=== PATIENT | female | born 1950 | race Caucasian/White ===

== ENCOUNTER 2021-04-20 10:45 | Outpatient (CLI) | payer OTHER | END 2021-04-20 10:59 | disposition home or self-care (01) | LOC: NUCLEAR 10:45 | PROVIDERS: ATTEND Orthopaedic Surgery | DX: I87.2 Venous insufficiency (chronic) (peripheral) (principal); M81.0 Age-related osteoporosis without current pathological fracture ==

== ENCOUNTER 2021-05-19 09:23 | Outpatient (CLI) | payer OTHER | END 2021-05-19 09:30 | disposition home or self-care (01) | LOC: NUCLEAR 09:23 | PROVIDERS: ATTEND Internal Medicine Cardiovascular Disease | DX: I73.9 Peripheral vascular disease, unspecified (principal); I82.493 Acute embolism and thrombosis of other specified deep vein of lower extremity, bilateral ==

== ENCOUNTER → 2021-05-19 10:08 | Outpatient (CLI) | payer OTHER | END | disposition home or self-care (01) | LOC: LAB 10:08 | PROVIDERS: ATTEND Orthopaedic Surgery | DX: E83.42 Hypomagnesemia (principal); M85.9 Disorder of bone density and structure, unspecified; E56.1 Deficiency of vitamin K; E78.00 Pure hypercholesterolemia, unspecified ==

== ENCOUNTER 2021-06-09 08:12 | Outpatient (CLI) | payer OTHER | END 2021-06-09 08:13 | disposition home or self-care (01) | LOC: NUCLEAR 08:12 | PROVIDERS: ATTEND Internal Medicine Cardiovascular Disease | DX: I50.1 Left ventricular failure, unspecified (principal); I25.9 Chronic ischemic heart disease, unspecified | CPT/HCPCS: 78452; 93017; A9500 ==

== ENCOUNTER 2022-03-10 14:44 | Outpatient (CLI) | payer OTHER | END 2022-03-10 14:58 | disposition home or self-care (01) | LOC: LAB 14:44 | PROVIDERS: ATTEND Internal Medicine Hematology & Oncology | DX: I10 Essential (primary) hypertension (principal) ==

== ENCOUNTER → 2022-03-25 | Outpatient (CLI) | payer OTHER | END | disposition home or self-care (01) | LOC: MRI 10:20 | PROVIDERS: ATTEND Internal Medicine Hematology & Oncology | DX: C83.00 Small cell B-cell lymphoma, unspecified site (principal) | CPT/HCPCS: 72195; 74181 ==

== ENCOUNTER → 2022-08-25 | Outpatient (CLI) | payer OTHER | END | disposition home or self-care (01) | LOC: NUCLEAR 09:00 | PROVIDERS: ATTEND Thoracic Surgery (Cardiothoracic Vascular Surgery) | DX: I87.2 Venous insufficiency (chronic) (peripheral) (principal); I73.9 Peripheral vascular disease, unspecified ==

== ENCOUNTER 2022-08-26 09:16 | Outpatient (CLI) | payer OTHER | END 2022-08-26 09:17 | disposition home or self-care (01) | LOC: NUCLEAR 09:16 | PROVIDERS: ATTEND Thoracic Surgery (Cardiothoracic Vascular Surgery) | DX: I73.9 Peripheral vascular disease, unspecified (principal) ==

== ENCOUNTER 2022-09-10 14:15 | Outpatient (CLI) | payer OTHER | END 2022-09-10 14:16 | disposition home or self-care (01) | LOC: LAB 14:15 | PROVIDERS: ATTEND Internal Medicine Hematology & Oncology | DX: R19.5 Other fecal abnormalities (principal) ==

== ENCOUNTER → 2022-10-11 11:56 | Outpatient (CLI) | payer OTHER | END | disposition home or self-care (01) | LOC: LAB 11:56 | PROVIDERS: ATTEND Internal Medicine Hematology & Oncology | DX: D50.8 Other iron deficiency anemias (principal); I10 Essential (primary) hypertension; E03.8 Other specified hypothyroidism; E11.9 Type 2 diabetes mellitus without complications; Z85.72 Personal history of non-Hodgkin lymphomas; I77.6 Arteritis, unspecified ==

== ENCOUNTER 2022-12-31 11:31 | Outpatient (CLI) | payer OTHER | END 2022-12-31 11:36 | disposition home or self-care (01) | LOC: LAB 11:31 | PROVIDERS: ATTEND Internal Medicine Hematology & Oncology | DX: E11.9 Type 2 diabetes mellitus without complications (principal); Z12.11 Encounter for screening for malignant neoplasm of colon; K76.0 Fatty (change of) liver, not elsewhere classified ==

== ENCOUNTER 2023-01-01 10:56 | Outpatient (CLI) | payer OTHER | END 2023-01-01 11:19 | disposition home or self-care (01) | LOC: LAB 10:56 | DX: E11.9 Type 2 diabetes mellitus without complications (principal); Z12.11 Encounter for screening for malignant neoplasm of colon ==

== ENCOUNTER 2023-01-06 07:50 | Outpatient (CLI) | payer OTHER | END 2023-01-06 07:52 | disposition home or self-care (01) | LOC: SONOGRAMA 07:50 | PROVIDERS: ATTEND Internal Medicine Hematology & Oncology | DX: K76.0 Fatty (change of) liver, not elsewhere classified (principal) ==

== ENCOUNTER 2023-01-11 14:54 | Outpatient (CLI) | payer OTHER | END 2023-01-11 14:56 | disposition home or self-care (01) | LOC: LAB 14:54 | PROVIDERS: ATTEND Internal Medicine Hematology & Oncology | DX: U07.1 COVID-19 (principal); Z20.828 Contact with and (suspected) exposure to other viral communicable diseases; J20.0 Acute bronchitis due to Mycoplasma pneumoniae; J11.1 Influenza due to unidentified influenza virus with other respiratory manifestations; Z84.0 Family history of diseases of the skin and subcutaneous tissue ==

== ENCOUNTER 2023-05-10 12:47 | Outpatient (CLI) | payer OTHER | END 2023-05-10 12:54 | disposition home or self-care (01) | LOC: SONOGRAMA 12:47 | DX: D17.79 Benign lipomatous neoplasm of other sites (principal) ==

== ENCOUNTER 2023-05-26 09:55 | Outpatient (CLI) | payer OTHER | END 2023-05-26 09:56 | disposition home or self-care (01) | LOC: NUCLEAR 09:55 | PROVIDERS: ATTEND Orthopaedic Surgery | DX: M81.0 Age-related osteoporosis without current pathological fracture (principal) ==

== ENCOUNTER 2023-06-02 14:22 | Outpatient (CLI) | payer OTHER | END 2023-06-02 14:34 | disposition home or self-care (01) | LOC: MRI 14:22 | PROVIDERS: ATTEND Orthopaedic Surgery | DX: M54.59 Other low back pain (principal) | CPT/HCPCS: 72148 ==

== ENCOUNTER 2023-07-27 11:41 | Outpatient (CLI) | payer OTHER ==
[2023-07-27 13:22] LABS: CHOL HDL RATIO 2.7 (0-5.0)
== END 2023-07-27 11:42 | disposition home or self-care (01) ==
LOC: LAB 11:41
PROVIDERS: ATTEND Internal Medicine Hematology & Oncology
DX: E78.00 Pure hypercholesterolemia, unspecified (principal)

== ENCOUNTER 2023-08-25 09:04 | Outpatient (CLI) | payer OTHER ==
[2023-08-25 10:04] LABS: HEMATOCRIT 29.9 % (36.0-45.00); MEAN CORPUSCULAR HEMOGLOBIN 24.4 pg (27.00-32.0); MEAN CORPUSCULAR HGB CONC 33.5 g/dl (32.0-36.0); PLATELET COUNT 319 K/uL (150-450); RED BLOOD COUNT 4.09 M/uL (4.00-6.00)
[2023-08-25 11:10] LABS: BILIRUBIN TOTAL 0.47 mg/dL (0.3-1.2); CALCIUM 9.4 mg/dL (8.5-10.1); CREATININE SERUM 0.72 mg/dL (0.55-1.02); FREE TRIODOTIRONINE 2.2 pg/ml (2.18-3.98); GFR 78.96; GLOBULINA 3.2 G/DL (2.4-3.5); MAGNESIUM 2.1 mg/dL (1.8-2.4); POTASSIUM 3.95 mEq/L (3.5-5.1); T4 FREE 1.09 NG/ML (0.76-1.46); TOTAL PROTEIN 7.2 gm/dL (6.4-8.2); TSH 3.69 uIU/mL (0.358-3.74)
[2023-08-25 11:11] LABS: VITAMIN D3 25 HYDROXY 29.96 ng/ml (30-120)
[2023-08-25 12:53] LABS: RED CELL DISTRIBUTION WIDTH 16.5 % (11.5-14.5)
== END 2023-08-25 09:05 | disposition home or self-care (01) ==
LOC: LAB 09:04
PROVIDERS: ATTEND Internal Medicine Hematology & Oncology
DX: D50.8 Other iron deficiency anemias (principal); D51.3 Other dietary vitamin B12 deficiency anemia; I10 Essential (primary) hypertension; E03.8 Other specified hypothyroidism; E11.9 Type 2 diabetes mellitus without complications

== ENCOUNTER → 2023-08-25 | Outpatient (CLI) | payer OTHER | END | disposition home or self-care (01) | LOC: RAD 09:35 | PROVIDERS: ATTEND Orthopaedic Surgery | DX: M25.551 Pain in right hip (principal); M25.561 Pain in right knee ==

== ENCOUNTER 2024-02-04 11:11 | Emergency (ER) | payer OTHER ==
[~2024-02-04] VITALS: Ht 162.6 cm; Wt 82.6 kg
[2024-02-04] MEDS ORDERED: MACRODANTIN100 MG PO (11:29)
[2024-02-04] MEDS ORDERED: AMLODIPINE-VAL1 EAC1 PO (11:30)
[2024-02-04] MEDS ORDERED: SYNTHROID112 MCG PO (11:30)
[2024-02-04] MEDS ORDERED: CEFADROXIL500 MG PO (11:30)
[2024-02-04] MEDS ORDERED: AMLODIPINE BESYL5 MG PO (11:30)
[2024-02-04] MEDS ORDERED: JANUMET XR 50-1 EACH PO (11:31)
[2024-02-04] MEDS ORDERED: CLOPIDOGREL BIS75 MG PO (11:31)
[2024-02-04] MEDS ORDERED: VALSARTAN160 MG PO (11:31)
[2024-02-04] MEDS ORDERED: HYDRODIURIL12.5 MG PO (11:31)
[2024-02-04 12:11] LABS: HEMATOCRIT 34.6 % (36.0-45.00); HEMOGLOBIN 12.1 g/dL (12.0-15.00); MEAN CELL VOLUME 81.5 fL (80.00-100.00); MEAN CORPUSCULAR HEMOGLOBIN 28.4 pg (27.00-32.0); MEAN CORPUSCULAR HGB CONC 34.8 g/dl (32.0-36.0); PLATELET COUNT 310 K/uL (150-450); RED BLOOD COUNT 4.25 M/uL (4.00-6.00); RED CELL DISTRIBUTION WIDTH 15.3 % (11.5-14.5)
[2024-02-04 12:33] LABS: ERYTHROCYTE SEDIMENTATION RATE 32 mm/hr
[2024-02-04 12:50] LABS: ALBUMIN 3.7 gm/dL (3.4-5.0); BILIRUBIN TOTAL 0.6 mg/dL (0.3-1.2); CALCIUM 9.2 mg/dL (8.5-10.1); CREATININE SERUM 0.78 mg/dL (0.55-1.02); GLOBULINA 3.4 G/DL (2.4-3.5); POTASSIUM 4.34 mEq/L (3.5-5.1); TOTAL PROTEIN 7.1 gm/dL (6.4-8.2)
[2024-02-04 12:53] LABS: D DIMER 0.49 MG/L; PARTIAL THROMBOPLASTIN TIME 25.4 SECONDS (22.0-34.0)
[2024-02-04 15:10] LABS: INR 0.97; PROTHROMBIN TIME 10.2 SECONDS (9.0-11.5)
== END 2024-02-04 18:20 | disposition home or self-care (01) ==
LOC: ER 11:11
PROVIDERS: General Practice
DX: M79.651 Pain in right thigh (principal); Z91.041 Radiographic dye allergy status; Z88.8 Allergy status to other drugs, medicaments and biological substances; E11.9 Type 2 diabetes mellitus without complications; Z79.84 Long term (current) use of oral hypoglycemic drugs; M71.21 Synovial cyst of popliteal space [Baker], right knee

== ENCOUNTER 2024-02-06 12:34 | Outpatient (CLI) | payer OTHER ==
[~2024-02-06 12:34] MED LIST: AMLODIPINE BESYL5 MG PO; AMLODIPINE-VAL1 EAC1 PO; CEFADROXIL500 MG PO; CLOPIDOGREL BIS75 MG PO; HYDRODIURIL12.5 MG PO; JANUMET XR 50-1 EACH PO; MACRODANTIN100 MG PO; SYNTHROID112 MCG PO; VALSARTAN160 MG PO
== END 2024-02-06 12:37 | disposition home or self-care (01) ==
LOC: LAB 12:34
PROVIDERS: ATTEND Internal Medicine
DX: B37.9 Candidiasis, unspecified (principal)

== ENCOUNTER 2024-03-23 12:29 | Outpatient (CLI) | payer OTHER | END 2024-03-23 12:37 | disposition home or self-care (01) | LOC: RAD 12:29 | PROVIDERS: ATTEND Internal Medicine Hematology & Oncology | DX: M54.2 Cervicalgia (principal) ==

== ENCOUNTER 2024-06-14 07:58 | Inpatient (IN) | payer OTHER ==
[~2024-06-14] VITALS: Ht 165.1 cm; Wt 79.4 kg
[2024-06-14] MEDS ORDERED: ZETIA10 MG (08:17)
[2024-06-14] MEDS ORDERED: PLAVIX75 MG (08:17)
[2024-06-14] MEDS ORDERED: MECLIZINE HCL 12.5 MG TABLET PO ONE (09:15)
[2024-06-14 10:33] LABS: HEMOGLOBIN 12.4 g/dL (12.0-15.00); MEAN CELL VOLUME 81.8 fL (80.00-100.00); MEAN CORPUSCULAR HEMOGLOBIN 29.1 pg (27.00-32.0); MEAN CORPUSCULAR HGB CONC 35.6 g/dl (32.0-36.0); PLATELET COUNT 240 K/uL (150-450); RED BLOOD COUNT 4.28 M/uL (4.00-6.00); RED CELL DISTRIBUTION WIDTH 13.5 % (11.5-14.5)
[2024-06-14 11:25] LABS: ALBUMIN 3.9 gm/dL (3.4-5.0); BILIRUBIN TOTAL 0.59 mg/dL (0.3-1.2); CALCIUM 8.7 mg/dL (8.5-10.1); CREATININE SERUM 0.71 mg/dL (0.55-1.02); GFR 80.04; GLOBULINA 3.1 G/DL (2.4-3.5); POTASSIUM 3.59 mEq/L (3.5-5.1)
[2024-06-14] MEDS ORDERED: 0.9 % SODIUM CHLORIDE 1,000 ML IV ONE (12:00)
[2024-06-14 14:57] LABS: CALCIUM 9.5 mg/dL (8.5-10.1); CREATININE SERUM 0.61 mg/dL (0.55-1.02); GFR 95.36; POTASSIUM 3.49 mEq/L (3.5-5.1)
[2024-06-14] MEDS ORDERED: 0.9 % SODIUM CHLORIDE 1,000 ML IV SCH ×2 (15:30→18:30)
[2024-06-14] MEDS ORDERED: INSULIN LISPRO 1,000 UNIT/10 ML UNITS SUBCUTANEO PRN (18:30)
[2024-06-14] MEDS ORDERED: DEXTROSE 50 % IN WATER 0.5 G/ML DISP.SYRIN IV PRN (18:30)
[2024-06-14] MEDS ORDERED: ACETAMINOPHEN 500 MG GEL..CAP PO PRN (18:30)
[2024-06-14 20:25] VITALS: BP 119/64; O2SAT 98
[2024-06-14 23:48] VITALS: BP 133/68; O2SAT 99
[2024-06-15 03:30] VITALS: BP 139/83; O2SAT 98
[2024-06-15] MEDS ORDERED: LEVOTHYROXINE SODIUM 112 MCG TABLET PO SCH (06:00)
[2024-06-15 07:06] LABS: INR 0.97; PARTIAL THROMBOPLASTIN TIME 27.1 SECONDS (22.0-34.0); PROTHROMBIN TIME 10.6 SECONDS (9.0-11.5)
[2024-06-15 07:39] LABS: CALCIUM 8.6 mg/dL (8.5-10.1); CREATININE SERUM 0.55 mg/dL (0.55-1.02); GFR 107.46; POTASSIUM 4.17 mEq/L (3.5-5.1)
[2024-06-15 07:42] LABS: TSH 3.01 uIU/mL (0.358-3.74)
[2024-06-15 08:00] VITALS: BP 138/65; O2SAT 99
[2024-06-15] MEDS ORDERED: CLOPIDOGREL BISULFATE 75 MG TABLET PO SCH (09:00)
[2024-06-15] MEDS ORDERED: PATIENTS OWN MEDICATION (MEDICAMENTO EN PISO) PO SCH (09:00)
[2024-06-15] MEDS ORDERED: FAMOTIDINE/PF 20 MG in 0.9 % SODIUM CHLORIDE 8 ML IV PUSH SCH (09:00)
[2024-06-15] MEDS ORDERED: CLOPIDOGREL BIS75 MG PO (15:09)
[2024-06-15] MEDS ORDERED: LEVOTHYROXINE112 MCG PO (15:10)
[2024-06-15] MEDS ORDERED: AMLODIPINE-VAL1 EAC1 PO (15:12)
[2024-06-15] MEDS ORDERED: ROSUVASTATIN CA10 MG PO (15:20)
[2024-06-15 16:22] VITALS: BP 133/73; O2SAT 96
== END 2024-06-15 20:55 | disposition home or self-care (01) | DRG 641 ==
LOC: ER 08:00 → SEC-K 18:56 → SURH 18:56
PROVIDERS: General Practice; ADMIT Internal Medicine; ATTEND Internal Medicine
PROC: B020ZZZ Computerized Tomography (CT Scan) of Brain (ICD-10-PCS; principal; 2024-06-14)
DX: E87.1 Hypo-osmolality and hyponatremia (principal); I10 Essential (primary) hypertension; E03.9 Hypothyroidism, unspecified

== ENCOUNTER → 2024-07-03 11:19 | Outpatient (CLI) | payer OTHER ==
[~2024-07-03 11:19] MED LIST changes: +LEVOTHYROXINE112 MCG PO; +PLAVIX75 MG; +ROSUVASTATIN CA10 MG PO; +ZETIA10 MG
== END | disposition home or self-care (01) ==
LOC: LAB 11:19
PROVIDERS: ATTEND Internal Medicine
DX: K52.9 Noninfective gastroenteritis and colitis, unspecified (principal)

== ENCOUNTER → 2024-07-06 11:03 | Outpatient (CLI) | payer OTHER | END | disposition home or self-care (01) | LOC: NUCLEAR 11:00 | DX: I77.9 Disorder of arteries and arterioles, unspecified (principal); I65.23 Occlusion and stenosis of bilateral carotid arteries ==

== ENCOUNTER 2024-08-25 11:17 | Outpatient (CLI) | payer OTHER ==
[2024-08-25 11:56] LABS: HEMATOCRIT 35.2 % (36.0-45.00); HEMOGLOBIN 12.1 g/dL (12.0-15.00); MEAN CELL VOLUME 83.1 fL (80.00-100.00); MEAN CORPUSCULAR HEMOGLOBIN 28.7 pg (27.00-32.0); MEAN CORPUSCULAR HGB CONC 34.5 g/dl (32.0-36.0); PLATELET COUNT 255 K/uL (150-450); RED BLOOD COUNT 4.23 M/uL (4.00-6.00)
[2024-08-25 12:02] LABS: PH,URINE 6.5 (5.0-8.0); URINE APPEARANCE Clear; URINE BILIRRUBIN Negative (NEGATIVE); URINE BLOOD Negative; URINE COLOR Yellow; URINE GLUCOSE Negative (NEGATIVE); URINE KETONE Negative (NEGATIVE); URINE LEUKOCYTE Trace; URINE NITRATE Negative; URINE PROTEIN Negative (NEGATIVE); URINE UROBILINOGEN 0.2 E.U./dl
[2024-08-25 12:06] LABS: URINE BACTERIA 26.9 uL (0.0-1933); URINE EPITHELIAL CELLS 11.1 uL (0.0-38.8); URINE RBC 14.4 uL (0.0-20.8); URINE WBC 3.3 uL (0.0-23.2)
[2024-08-25 12:13] LABS: URINE CAST 0.29 uL (0.0-1.40)
[2024-08-25 12:57] LABS: ALBUMIN 3.9 gm/dL (3.4-5.0); ALKALINE PHOSPHATASE 82 U/L (50-136); ALT/SGPT 21 U/L (12-78); ANION GAP 8 (10.0-20.0); AST/SGOT 10 U/L (15-37); BILIRUBIN TOTAL 0.58 mg/dL (0.3-1.2); BLOOD UREA NITROGEN 16 mg/dL (7-18); BUN CREA RATIO 24 (7.0-25.0); CALCIUM 9.7 mg/dL (8.5-10.1); CARBON DIOXIDE 28 mEq/L (21-32); CHLORIDE 101 mmol/L (98-107); CHOL HDL RATIO 2.6 (0-5.0); CHOLESTEROL 200 mg/dL (0-200); CREATININE SERUM 0.67 mg/dL (0.55-1.02); FREE TRIODOTIRONINE 2.16 pg/ml (2.18-3.98); GFR 85.57; GLOBULINA 3.2 G/DL (2.4-3.5); GLUCOSE FASTING 121 mg/dL (65-100); HDL 78 mg/dl (40-60); LDH 198 U/L (84-246); LDL 100 mg/dl (0-130); OSMOLALITY SERUM 269 MOSM/KG (275-295); POTASSIUM 4.29 mEq/L (3.5-5.1); SODIUM 133 mmol/L (136-145); TOTAL IRON BINDING CAPACITY 402 ug/dl (250-450); TOTAL PROTEIN 7.1 gm/dL (6.4-8.2); TRIGLYCERIDES 109 mg/dL (0-150); VLDL 21 (0-39)
[2024-08-25 12:58] LABS: C-REACTIVE PROTEIN < 0.29 MG/DL (0.00-0.29)
== END 2024-08-25 11:20 | disposition home or self-care (01) ==
LOC: LAB 11:17
PROVIDERS: ATTEND Internal Medicine Hematology & Oncology
DX: D50.8 Other iron deficiency anemias (principal); I10 Essential (primary) hypertension; E03.8 Other specified hypothyroidism; E11.9 Type 2 diabetes mellitus without complications; N39.0 Urinary tract infection, site not specified; D64.9 Anemia, unspecified; R74.01 Elevation of levels of liver transaminase levels; R70.1 Abnormal plasma viscosity

== ENCOUNTER → 2024-11-09 07:50 | Outpatient (CLI) | payer OTHER ==
[~2024-11-09 07:50] MED LIST changes: +AMLODIPINE BESY10 MG PO; +BENZONATATE200 M1 PO; +CVS TUSSIN DM237 M2 PO; +LOSARTAN POTAS100 MG PO; +ROSUVASTATIN CAL5 MG PO
== END | disposition home or self-care (01) ==
LOC: NUCLEAR 07:50
PROVIDERS: ATTEND Internal Medicine
DX: I20.9 Angina pectoris, unspecified (principal)

== ENCOUNTER 2024-11-14 02:45 | Inpatient (IN) | payer OTHER ==
[~2024-11-14] VITALS: Ht 162.6 cm; Wt 179.6 kg
[~2024-11-14 02:45] MED LIST changes: -AMLODIPINE BESY10 MG PO; -BENZONATATE200 M1 PO; -CVS TUSSIN DM237 M2 PO; -LOSARTAN POTAS100 MG PO; -ROSUVASTATIN CAL5 MG PO
[2024-11-14] MEDS ORDERED: ONDANSETRON HCL 2 MG/ML VIAL IV STA (04:46)
[2024-11-14] MEDS ORDERED: FAMOTIDINE/PF 20 MG/2 ML VIAL IV PUSH STA (04:46)
[2024-11-14] MEDS ORDERED: SUCRALFATE 1 G TABLET PO STA (04:48)
[2024-11-14] MEDS ORDERED: ONDANSETRON HCL 2 MG/ML VIAL ONE ×2 (04:51→16:36)
[2024-11-14] MEDS ORDERED: FAMOTIDINE/PF 20 MG/2 ML VIAL ONE (04:52)
[2024-11-14] MEDS ORDERED: 0.9 % SODIUM CHLORIDE 1,000 ML IV ONE (05:00)
[2024-11-14 06:25] LABS: HEMOGLOBIN 11.7 g/dL (12.0-15.00); MEAN CELL VOLUME 80.5 fL (80.00-100.00); MEAN CORPUSCULAR HEMOGLOBIN 27.8 pg (27.00-32.0); MEAN CORPUSCULAR HGB CONC 34.6 g/dl (32.0-36.0); PLATELET COUNT 241 K/uL (150-450); RED BLOOD COUNT 4.22 M/uL (4.00-6.00); RED CELL DISTRIBUTION WIDTH 13.4 % (11.5-14.5)
[2024-11-14 06:52] LABS: ALBUMIN 3.7 gm/dL (3.4-5.0); BILIRUBIN TOTAL 0.69 mg/dL (0.3-1.2); CALCIUM 8.8 mg/dL (8.5-10.1); CREATININE SERUM 0.67 mg/dL (0.55-1.02); GFR 85.57; GLOBULINA 3.6 G/DL (2.4-3.5); POTASSIUM 4.05 mEq/L (3.5-5.1); TOTAL PROTEIN 7.3 gm/dL (6.4-8.2)
[2024-11-14] MEDS ORDERED: METOCLOPRAMIDE HCL 5 MG/ML VIAL ONE (10:56)
[2024-11-14] MEDS ORDERED: METOCLOPRAMIDE HCL 10 MG in DEXTROSE 5 % IN WATER 50 ML IV ONE (11:00)
[2024-11-14 11:06] LABS: CREATININE SERUM 0.71 mg/dL (0.55-1.02); GFR 80.04; POTASSIUM 3.84 mEq/L (3.5-5.1)
[2024-11-14] MEDS ORDERED: PANTOPRAZOLE SODIUM 40 MG in 0.9 % SODIUM CHLORIDE 8 ML IV PUSH STA (14:55)
[2024-11-14] MEDS ORDERED: DEXTROSE 50 % IN WATER 0.5 G/ML DISP.SYRIN IV PRN (15:15)
[2024-11-14] MEDS ORDERED: ONDANSETRON HCL 4 MG in 0.9 % SODIUM CHLORIDE 50 ML IV PRN (15:15)
[2024-11-14] MEDS ORDERED: INSULIN LISPRO 1,000 UNIT/10 ML UNITS SUBCUTANEO PRN (15:15)
[2024-11-14] MEDS ORDERED: AMLODIPINE BESYLATE 5 MG TABLET PO SCH (15:22)
[2024-11-14] MEDS ORDERED: 0.9 % SODIUM CHLORIDE 1,000 ML IV SCH (15:30)
[2024-11-14 15:50] VITALS: BP 151/79; O2SAT 99
[2024-11-14] MEDS ORDERED: INSULIN LISPRO 1,000 UNIT/10 ML UNITS SUBCUTANEO ONE (15:57)
[2024-11-14 16:08] LABS: INR 0.96; PARTIAL THROMBOPLASTIN TIME 27.3 SECONDS (22.0-34.0); PROTHROMBIN TIME 10.5 SECONDS (9.0-11.5)
[2024-11-14 16:41] LABS: COVID-19 AG NEGATIVE (NEGATIVE)
[2024-11-14 16:52] LABS: INFLUENZA A AG NEGATIVE (NEGATIVE)
[2024-11-14 22:39] VITALS: BP 160/73; O2SAT 96
[2024-11-15 01:18] VITALS: BP 169/69
[2024-11-15] MEDS ORDERED: LEVOTHYROXINE SODIUM 112 MCG TABLET PO SCH (06:00)
[2024-11-15] MEDS ORDERED: PANTOPRAZOLE SODIUM 40 MG/VIAL VIAL IV SCH (09:00)
[2024-11-15] MEDS ORDERED: CLOPIDOGREL BISULFATE 75 MG TABLET PO SCH (09:00)
[2024-11-15] MEDS ORDERED: AMLODIPINE PO SCH (09:00)
[2024-11-15] MEDS ORDERED: VALSARTAN PO SCH (09:00)
[2024-11-15] MEDS ORDERED: [UNRECOGNIZED DRUG - OTHER] PO SCH (09:00)
[2024-11-15 09:09] LABS: HEMATOCRIT 34.5 % (36.0-45.00); HEMOGLOBIN 11.9 g/dL (12.0-15.00); MEAN CELL VOLUME 79.1 fL (80.00-100.00); MEAN CORPUSCULAR HEMOGLOBIN 27.3 pg (27.00-32.0); MEAN CORPUSCULAR HGB CONC 34.5 g/dl (32.0-36.0); PLATELET COUNT 267 K/uL (150-450); RED BLOOD COUNT 4.36 M/uL (4.00-6.00); RED CELL DISTRIBUTION WIDTH 13.3 % (11.5-14.5)
[2024-11-15 09:23] LABS: PH,URINE 6.5 (5.0-8.0); URINE APPEARANCE Clear; URINE BILIRRUBIN Negative (NEGATIVE); URINE BLOOD Trace; URINE COLOR Yellow; URINE KETONE 15 (NEGATIVE); URINE LEUKOCYTE Trace; URINE NITRATE Negative; URINE PROTEIN Negative (NEGATIVE); URINE UROBILINOGEN 0.2 E.U./dl
[2024-11-15 09:27] LABS: URINE BACTERIA 31.7 uL (0.0-1933); URINE EPITHELIAL CELLS 8.6 uL (0.0-38.8); URINE RBC 7.2 uL (0.0-20.8); URINE WBC 9.1 uL (0.0-23.2)
[2024-11-15 09:30] VITALS: BP 130/69; O2SAT 97
[2024-11-15 09:38] LABS: CHOL HDL RATIO 2.9 (0-5.0)
[2024-11-15 09:45] LABS: URINE GLUCOSE 100 MG/DL (NEGATIVE)
[2024-11-15 09:45] LABS: ALBUMIN 3.4 gm/dL (3.4-5.0); BILIRUBIN TOTAL 0.62 mg/dL (0.3-1.2); CALCIUM 8.5 mg/dL (8.5-10.1); CREATININE SERUM 0.62 mg/dL (0.55-1.02); GFR 93.59; MAGNESIUM 1.6 mg/dL (1.8-2.4); PHOSPHOROUS 2.4 mg/dL (2.5-4.9); POTASSIUM 3.47 mEq/L (3.5-5.1); TOTAL PROTEIN 6.4 gm/dL (6.4-8.2); TSH 2.09 uIU/mL (0.358-3.74)
[2024-11-15] MEDS ORDERED: MAGNESIUM SULFATE IN WATER 50 ML IV STA (12:00)
[2024-11-15] MEDS ORDERED: POTASSIUM CHLORIDE 20MEQ/100ML H2O PB IV NR (14:00)
[2024-11-15] MEDS ORDERED: DEXTROSE 50 % IN WATER 0.5 G/ML VIAL IV PRN (14:30)
[2024-11-15] MEDS ORDERED: FUROsemide 20 MG/2 ML VIAL IV NR (15:30)
[2024-11-15 17:51] VITALS: BP 144/71; O2SAT 96
[2024-11-15] MEDS ORDERED: SODIUM PHOS,M-BASIC-D-BASIC 3 MMOL/ML VIAL IV ONE (20:00)
[2024-11-16 01:19] VITALS: BP 124/63
[2024-11-16 07:57] VITALS: BP 135/74; O2SAT 93
[2024-11-16] MEDS ORDERED: INSULIN NPH HUM/REG INSULIN HM 1,000 UNIT/10 ML UNITS SUBCUTANEO SCH (08:00)
[2024-11-16 08:23] LABS: HEMATOCRIT 33.8 % (36.0-45.00); HEMOGLOBIN 11.8 g/dL (12.0-15.00); MEAN CELL VOLUME 78.3 fL (80.00-100.00); MEAN CORPUSCULAR HEMOGLOBIN 27.4 pg (27.00-32.0); PLATELET COUNT 280 K/uL (150-450); RED BLOOD COUNT 4.32 M/uL (4.00-6.00); RED CELL DISTRIBUTION WIDTH 13.6 % (11.5-14.5)
[2024-11-16 08:58] LABS: ALBUMIN 3.3 gm/dL (3.4-5.0); BILIRUBIN TOTAL 0.38 mg/dL (0.3-1.2); CALCIUM 8.5 mg/dL (8.5-10.1); CREATININE SERUM 0.52 mg/dL (0.55-1.02); GFR 114.65; GLOBULINA 2.7 G/DL (2.4-3.5); MAGNESIUM 1.8 mg/dL (1.8-2.4); PHOSPHOROUS 2.8 mg/dL (2.5-4.9); POTASSIUM 3.55 mEq/L (3.5-5.1)
[2024-11-16] MEDS ORDERED: AMLODIPINE BESYLATE 10 MG TABLET PO SCH (09:00)
[2024-11-16] MEDS ORDERED: LOSARTAN POTASSIUM 100 MG TABLET PO SCH (09:00)
[2024-11-16 17:47] VITALS: BP 157/84; O2SAT 98
[2024-11-16] MEDS ORDERED: CLOPIDOGREL BIS75 MG PO (17:57)
[2024-11-16] MEDS ORDERED: AMLODIPINE BESY10 MG PO (17:58)
[2024-11-16] MEDS ORDERED: LOSARTAN POTAS100 MG PO (17:58)
[2024-11-16] MEDS ORDERED: LEVOTHYROXINE112 MCG PO (17:58)
[2024-11-16] MEDS ORDERED: BENZONATATE200 M1 PO (18:00)
[2024-11-16] MEDS ORDERED: CVS TUSSIN DM237 M2 PO (18:00)
[2024-11-16] MEDS ORDERED: ROSUVASTATIN CAL5 MG PO (18:01)
== END 2024-11-16 19:20 | disposition home or self-care (01) | DRG 641 ==
LOC: ER 02:46 → MEDJ 15:47
PROVIDERS: General Practice; Internal Medicine Nephrology; ADMIT Internal Medicine; ATTEND Internal Medicine
PROC: BW21ZZZ Computerized Tomography (CT Scan) of Abdomen and Pelvis (ICD-10-PCS; principal; 2024-11-14)
DX: E87.1 Hypo-osmolality and hyponatremia (principal); E86.0 Dehydration; E83.42 Hypomagnesemia; E83.39 Other disorders of phosphorus metabolism; E11.65 Type 2 diabetes mellitus with hyperglycemia; I10 Essential (primary) hypertension; E03.9 Hypothyroidism, unspecified; Z79.84 Long term (current) use of oral hypoglycemic drugs

== ENCOUNTER → 2025-01-03 | Outpatient (CLI) | payer OTHER ==
[~2025-01-03] MED LIST changes: +AMLODIPINE BESY10 MG PO; +BENZONATATE200 M1 PO; +CVS TUSSIN DM237 M2 PO; +LOSARTAN POTAS100 MG PO; +ROSUVASTATIN CAL5 MG PO
== END | disposition home or self-care (01) ==
LOC: RAD 15:11
DX: M79.671 Pain in right foot (principal)

== ENCOUNTER 2025-01-15 10:51 | Outpatient (CLI) | payer OTHER ==
[2025-01-15 11:38] LABS: BASO % 0.7 % (0.1-1.2); EOS # 0.24 (0.04-0.54); EOS % 3.2 % (0.7-7.0); HEMOGLOBIN 10.8 g/dL (11.2-15.7); LYMPH # 1.31 (1.18-3.74); LYMPH % 17.5 % (19.3-53.1); MEAN CORPUSCULAR HEMOGLOBIN 27.3 pg (25.6-32.2); MONO # 0.77 (0.24-0.82); MONO % 10.3 % (4.7-12.5); NEUT # 5.09 (1.56-6.13); PLATELET COUNT 266 K/uL (163-369); RED BLOOD COUNT 3.96 M/uL (3.93-5.22); RED CELL DISTRIBUTION WIDTH 13.8 % (11.6-14.4)
[2025-01-15 11:42] LABS: URINE APPEARANCE Clear; URINE BILIRRUBIN Negative (NEGATIVE); URINE BLOOD Negative; URINE COLOR Yellow; URINE GLUCOSE Negative (NEGATIVE); URINE KETONE Trace (NEGATIVE); URINE LEUKOCYTE Small; URINE NITRATE Negative; URINE PROTEIN Negative (NEGATIVE); URINE UROBILINOGEN 0.2 E.U./dl
[2025-01-15 11:46] LABS: URINE BACTERIA 72.2 uL (0.0-1933); URINE EPITHELIAL CELLS 21.6 uL (0.0-38.8); URINE RBC 4.2 uL (0.0-20.8); URINE WBC 9.9 uL (0.0-23.2)
[2025-01-15 12:00] LABS: ERYTHROCYTE SEDIMENTATION RATE 36 mm/hr (0-30)
[2025-01-15 12:01] LABS: URINE CAST 0.29 uL (0.0-1.40)
[2025-01-15 12:40] LABS: ALBUMIN 3.7 gm/dL (3.4-5.0); ALKALINE PHOSPHATASE 87 U/L (50-136); ALT/SGPT 26 U/L (12-78); ANION GAP 10 (10.0-20.0); AST/SGOT 14 U/L (15-37); BILIRUBIN TOTAL 0.52 mg/dL (0.3-1.2); BLOOD UREA NITROGEN 24 mg/dL (7-18); BUN CREA RATIO 32 (7.0-25.0); CALCIUM 8.9 mg/dL (8.5-10.1); CARBON DIOXIDE 26 mEq/L (21-32); CHLORIDE 106 mmol/L (98-107); CHOL HDL RATIO 2.5 (0-5.0); CHOLESTEROL 177 mg/dL (0-200); CREATININE SERUM 0.74 mg/dL (0.55-1.02); GLOBULINA 2.9 G/DL (2.4-3.5); GLUCOSE FASTING 151 mg/dL (65-100); HDL 71 mg/dl (40-60); LDL 86 mg/dl (0-130); OSMOLALITY SERUM 283 MOSM/KG (275-295); POTASSIUM 4.16 mEq/L (3.5-5.1); SODIUM 138 mmol/L (136-145); TOTAL PROTEIN 6.6 gm/dL (6.4-8.2); TRIGLYCERIDES 101 mg/dL (0-150); VLDL 20 (0-39)
[2025-01-15 12:46] LABS: C-REACTIVE PROTEIN < 0.29 MG/DL (0.00-0.29)
== END 2025-01-15 10:53 | disposition home or self-care (01) ==
LOC: LAB 10:51
PROVIDERS: ATTEND Internal Medicine Hematology & Oncology
DX: D64.9 Anemia, unspecified (principal); E03.8 Other specified hypothyroidism; I10 Essential (primary) hypertension; E11.9 Type 2 diabetes mellitus without complications; Z85.71 Personal history of Hodgkin lymphoma; R70.0 Elevated erythrocyte sedimentation rate; I77.6 Arteritis, unspecified; N39.0 Urinary tract infection, site not specified

== ENCOUNTER 2025-04-11 08:16 | Outpatient (CLI) | payer OTHER | END 2025-04-11 08:21 | disposition home or self-care (01) | LOC: SONOGRAMA 08:16 | PROVIDERS: ATTEND Internal Medicine Hematology & Oncology | DX: R10.10 Upper abdominal pain, unspecified (principal) ==

== ENCOUNTER 2025-06-21 14:59 | Outpatient (CLI) | payer OTHER | END 2025-06-21 15:04 | disposition home or self-care (01) | LOC: MRI 14:59 | PROVIDERS: ATTEND Internal Medicine Hematology & Oncology | DX: M19.90 Unspecified osteoarthritis, unspecified site (principal) | CPT/HCPCS: 73721 ==